=== PATIENT | female | born 1965 | race Caucasian/White ===

== ENCOUNTER 2017-08-27 01:46 | Emergency (ER) | payer OTHER ==
[~2017-08-27] VITALS: Ht 160 cm; Wt 138.1 kg
[~2017-08-27 01:46] MED LIST: JANTOVEN7.5 MG PO; KEFLEX500 MG PO; MEVACOR10 M1 PO; SERTRALINE HCL100 MG PO
[2017-08-27 02:18] LABS: BASOPHIL (%) 0.3 % (0-1); EOSINOPHIL (%) 1.9 % (0-5); EOSINOPHIL COUNT 0.2 K/uL (0-0.3); HEMATOCRIT 37.4 % (36.0-46.0); HEMOGLOBIN 12.3 G/DL (11.9-15.5); IMMATURE GRANULOCYTE (%) 0.4 % (0.0-0.7); LYMPHOCYTE (%) 28.6 % (15-42); LYMPHOCYTE COUNT 2.3 K/uL (1.0-2.8); MCH 28.7 PG (29.0-34.0); MCHC 32.9 G/DL (30.0-36.0); MCV 87.4 FL (83-99); MONOCYTE (%) 6.9 % (3-12); MONOCYTE COUNT 0.5 K/uL (0-0.8); NEUTROPHIL (%) 61.9 % (45-76); NEUTROPHIL COUNT 4.9 K/uL (1.8-6.4); PLATELET COUNT 245 K/uL (156-360); RBC DIS.WIDTH-CV 14.1 % (11.8-14.6); RBC DIS.WIDTH-SD 45.7 % (39-53); RED BLOOD COUNT 4.28 M/uL (3.80-5.20); WHITE BLOOD COUNT 7.9 K/uL (4.1-10.2)
[2017-08-27 02:25] LABS: INTER. NORMALIZED RATIO 4.3
[2017-08-27 02:27] LABS: PTT 52.3 SEC (25-37)
[2017-08-27 02:35] LABS: CHLORIDE 106 mEq/L (99-109); SODIUM 140 mEq/L (136-147)
[2017-08-27 02:37] LABS: GLUCOSE 101 mg/dL (70-99)
[2017-08-27 02:41] LABS: CREATININE 0.7 mg/dL (0.6-1.3); GFR ESTIMATE (CALCULATED) > 59 mL/min/; UREA NITROGEN (BUN) 26 mg/dL (9-23)
[2017-08-27 05:47] VITALS: BP 142/99
== END 2017-08-27 05:48 | disposition home or self-care (01) ==
LOC: EME 01:46
PROVIDERS: Emergency Medicine
PROC: 2Y41X5Z Packing of Nasal Region using Packing Material (ICD-10-PCS; principal; 2017-08-27)
DX: R04.0 Epistaxis (principal); Z79.01 Long term (current) use of anticoagulants; R05 Cough; Z95.4 Presence of other heart-valve replacement
CPT/HCPCS: 80048; 85025; 85610; 85730; 99281; 99285